=== PATIENT | male | born 1960 | race Caucasian/White ===

== ENCOUNTER 2019-04-30 07:39 | Day surgery (SDC) | payer OTHER ==
[~2019-04-30] VITALS: Ht 172.7 cm; Wt 111.1 kg
[~2019-04-30 07:39] MED LIST: ACET-8386 PO
[2019-04-30] MEDS ORDERED: MIDAZOLAM 2 MG/2 ML VIAL ONE (10:17)
[2019-04-30] MEDS ORDERED: fentaNYL 0.05 MG/ML VIAL ONE (10:17)
[2019-04-30] MEDS ORDERED: LIDOCAINE 2% 100 MG/5 ML UJET TP ONE (10:18)
== END 2019-04-30 12:13 | disposition home or self-care (01) ==
LOC: MMU 07:39 → MDS 07:39
PROVIDERS: ATTEND Internal Medicine Gastroenterology
DX: K62.5 Hemorrhage of anus and rectum (principal); K63.5 Polyp of colon; I10 Essential (primary) hypertension; E66.9 Obesity, unspecified; Z68.37 Body mass index [BMI] 37.0-37.9, adult; Z79.899 Other long term (current) drug therapy; Z98.890 Other specified postprocedural states; Z72.89 Other problems related to lifestyle; Z86.010 Personal history of colon polyps
CPT/HCPCS: 45380; 45385; J2250; J3010